=== PATIENT | male | born 1940 | race Caucasian/White ===

== ENCOUNTER 2018-07-15 17:06 | Emergency (ER) | payer OTHER ==
[~2018-07-15] VITALS: Wt 61.4 kg
[2018-07-15] MEDS ORDERED: SOD CHLORIDE 0.9% 1,000 ML IV STA ×2 (17:23→18:46)
[2018-07-15] MEDS ORDERED: morphine 4 MG/ML VIAL IV STA (17:23)
[2018-07-15] MEDS ORDERED: ONDANSETRON 4 MG INJ IV STA ×2 (17:23→18:46)
[2018-07-15] MEDS ORDERED: IOHEXOL 300MG/ML 150 ML BTL ONE (18:11)
[2018-07-15] MEDS ORDERED: SOD CHLORIDE 0.9% 100 ML ONE (18:11)
[2018-07-15] MEDS ORDERED: HYDROmorphONE 1 MG/ML SYG IV STA (18:46)
[2018-07-15] MEDS ORDERED: POTASSIUM CHLORIDE (SR) 20 MEQ TAB PO STA (18:52)
--- NOTE | 2018-07-15 18:52 | ERD ---
ER Documentation Chief Complaint Chief Complaint Pt. SANJEEV RA with c/o epigastric pain with NV, started 1hr MECHANICAL INSPECTOR HPI This is a 78-year-old male with no past medical history the presents to the emergency department complaining of abdominal pain. The patient indicates that the abdominal pain occurred roughly 6 hours prior to arrival. It was sudden in onset. He states it is epigastric in region. It does radiate to the right upper quadrant and right lower quadrant. He states it is 10 out of 10 in intensity. He had 5 episodes of nonbloody nonbilious emesis. The patient phoned 911 and when EMS arrived they indicated the patient had a blood glucose of 195. The patient appear to be in a significant amount discomfort. He states he never had any similar pain in the past. He denies any recent travel or hospitalizations. No shortness of breath at rest or exertion. He has no chest pain or pressure. He has no past surgical history ROS All systems reviewed and are negative except as per history of present illness. Medications Home Meds Active Scripts Docusate Sodium* (Colace*) 100 Mg Capsule, 100 MG PO Q24H PRN for CONSTIPATION, #30 CAP Prov:TEMITOPE WILDE MD 07/15/18 Allergies Allergies: Coded Allergies: No Known Allergy (Unverified , 07/15/18) PMhx/Soc Medical and Surgical Hx: pt denies Surgical Hx History of Surgery: No Hx Neurological Disorder: No Hx Respiratory Disorders: No Hx Cardiac Disorders: No Hx Psychiatric Problems: No Hx Miscellaneous Medical Probl: Yes (DM) Hx Alcohol Use: No Hx Substance Use: No Hx Tobacco Use: No Smoking Status: Never smoker Physical Exam Vitals Vital Signs Date Temp Pulse Resp B/P (MAP) Pulse Ox O2 O2 Flow FiO2 Time Delivery Rate 07/15/18 78 23 171/82 96 Room Air 20:00 (111) 07/15/18 81 21 180/91 99 Room Air 19:30 (120) 07/15/18 78 18 186/86 99 Room Air 19:00 (119) 07/15/18 98.8 76 22 193/91 100 17:09 (125) Physical Exam Constitutional:Well-developed. Well-nourished. Patient appear to be in a significant amount of discomfort secondary pain HEENT:Normocephalic. Atraumatic.Pupils were equal round reactive to light. Dry mucous membranes.No tonsillar exudates. Neck: No nuchal rigidity. No lymphadenopathy. No posterior cervical spine t enderness or step-offs. Respiratory: Not using accessory muscles of respiration.Lungs were clear to auscultation bilaterally. No rhonchi. No rales. No wheezing. Cardiovascular: Regular rate regular rhythm.No murmurs. No rubs were appreciated.S1, S2 normal. Distal pulses are palpable 2+ bilaterally. GI: Abdomen was soft. Epigastric tenderness and right upper quadrant tenderness with negative Barrios sign. Negative psoas sign. Negative obturator sign. Tenderness in right lower quadrant.. Non Distended. No pulsatile abdominal masses or bruits. No rebound. No guarding. Bowel sounds were present and normal. Muscle skeletal: Full range of motion of both the upper and lower extremities bilaterally.Normal muscle tone.No assymetrical calf tenderness or swelling. Skin: No petechia, no purpura. No lesions on the palms or the soles of the feet. No maculopapular rash. NEURO: Patient was alert, awake, orientated x3.No facial droop. Gait observed and normal with no ataxia.Speech had regular rate and rhythm. No focal neurological deficits. Result Diagram: 07/15/18 1730 07/15/18 1730 Results 24 hrs Laboratory Tests Test 07/15/18 17:30 White Blood Count 11.7 10^3/ul Red Blood Count 4.68 10^6/ul Hemoglobin 13.4 g/dl Hematocrit 39.2 % Mean Corpuscular Volume 83.8 fl Mean Corpuscular Hemoglobin 28.6 pg Mean Corpuscular Hemoglobin Concent 34.2 g/dl Red Cell Distribution Width 13.4 % Platelet Count 331 10^3/UL Mean Platelet Volume 11.1 fl Immature Granulocytes % 0.500 % Neutrophils % 78.4 % Lymphocytes % 16.3 % Monocytes % 3.8 % Eosinophils % 0.6 % Basophils % 0.4 % Nucleated Red Blood Cells % 0.0 /100WBC Immature Granulocytes # 0.060 10^3/ul Neutrophils # 9.2 10^3/ul Lymphocytes # 1.9 10^3/ul Monocytes # 0.4 10^3/ul Eosinophils # 0.1 10^3/ul Basophils # 0.1 10^3/ul Nucleated Red Blood Cells # 0.0 10^3/ul Prothrombin Time 12.8 Sec Prothrombin Time Ratio 1.0 INR International Normalized Ratio 0.95 Activated Partial Thromboplast Time 26.4 Sec Sodium Level 141 mmol/L Potassium Level 3.3 mmol/L Chloride Level 101 mmol/L Carbon Dioxide Level 22 mmol/L Anion Gap 18 Blood Urea Nitrogen 15 mg/dl Creatinine 0.74 mg/dl Est Glomerular Filtrat Rate mL/min mL/min Glucose Level 180 mg/dl Calcium Level 9.4 mg/dl Total Bilirubin 0.5 mg/dl Direct Bilirubin 0.00 mg/dl Indirect Bilirubin 0.5 mg/dl Aspartate Amino Transf (AST/SGOT) 21 IU/L Alanine Aminotransferase (ALT/SGPT) 18 IU/L Alkaline Phosphatase 144 IU/L Troponin I < 0.012 ng/ml Total Protein 8.3 g/dl Albumin 4.7 g/dl Globulin 3.60 g/dl Albumin/Globulin Ratio 1.30 Amylase Level 57 U/L Lipase 47 U/L Current Medications Medications Dose Sig/Awilda Start Time Status Last (Trade) Ordered Route PRN Stop Time Admin Dose Reason Admin Sodium 1,000 ml @ Q1H STAT 07/15/18 DC 07/15/18 Chloride 1,000 mls/hr IV 17:23 17:29 07/15/18 18:22 Morphine 4 mg ONCE STAT 07/15/18 DC 07/15/18 Sulfate IV 17:23 17:29 (morphine) 07/15/18 17:25 Ondansetron 4 mg ONCE STAT 07/15/18 DC 07/15/18 HCl (Zofran IV 17:23 17:29 Inj) 07/15/18 17:25 IV Flush 10 ml STK-MED 07/15/18 DC 07/15/18 (NS 10 ml) ONCE .ROUTE 18:11 18:34 07/15/18 18:12 Sodium 100 ml @ ud STK-MED 07/15/18 DC 07/15/18 Chloride ONCE .ROUTE 18:11 18:34 07/15/18 18:12 Iohexol 150 ml STK-MED 07/15/18 DC 07/15/18 (Omnipaque ONCE .ROUTE 18:11 18:34 300mg/ ml) 07/15/18 18:12 Sodium 1,000 ml @ Q1H STAT 07/15/18 DC 07/15/18 Chloride 1,000 mls/hr IV 18:46 19:28 07/15/18 19:45 1 mg ONCE STAT 07/15/18 DC 07/15/18 Hydromorphone IV 18:46 19:28 HCl 07/15/18 18:56 (Dilaudid) Ondansetron 4 mg ONCE STAT 07/15/18 DC 07/15/18 HCl (Zofran IV 18:46 19:28 Inj) 07/15/18 18:56 Potassium 20 meq ONCE STAT 07/15/18 DC 07/15/18 Chloride PO 18:52 19:29 (Klor-Con 20) 07/15/18 18:56 Magnesium 30 ml ONCE ONCE 07/15/18 DC 07/15/18 Hydroxide PO 19:30 19:34 (Milk Of Mag) 07/15/18 19:31 Meclizine 25 mg ONCE ONCE 07/15/18 DC 07/15/18 HCl PO 20:00 20:00 (Antivert) 07/15/18 20:01 Clonidine 0.1 mg ONCE ONCE 07/15/18 (Catapres) PO 20:30 07/15/18 20:31 Diazepam 5 mg ONCE ONCE 07/15/18 (Valium) PO 20:30 07/15/18 20:31 Procedures/MDM This patient presented to the emergency department with abdominal pain and was seen and evaluated by myself. My differential diagnosis included but was not limited to abdominal aortic aneurysm, appendicitis, pancreatitis, perforated peptic ulcer, perforated viscus, Boerhaaves syndrome or visceral pain such as diverticulitis, DKA, esophagitis, hepatitis or bowel obstruction. The patient was placed on a rn cardiac rehab, continuous pulse oximetry, and IV access was established by nursing staff. The patient received intravenous fluids as well as morphine and Zofran for analgesic control I did a 12-lead EKG tracing to rule out for atypical myocardial function. 12 Lead EKG tracing ordered and reviewed by myself showed: Normal sinus rhythm of 66 bpm and no arrhythmia. OR interval normal. QRS duration normal. No ST segment elevation No ST segment depression. No changes consistent with acute ischemia. The patient had leukocytosis with no severe electrolyte abnormalities other than mild hypokalemia and received oral potassium. It is necessary to obtain a CT scan of the abdomen due to the severity of the patient's pain. This was read by the radiologist and indicated the followin. 10 mm cyst lower pole left kidney. No solid renal masses. No calculus. Slight prominence of the collecting systems and ureters bilaterally secondary to overdistention of the urinary bladder. No obstructive uropathy. 2. Mild enlargement prostate gland. 3. Excessive retained stool throughout the colon, suggesting constipation. No bowel inflammation or obstruction. 4. Moderate sized hiatal hernia noted. The patient received milk of magnesium in the emergency department. Just prior to discharge at 8:20 PM the patient started to complain of a spinning-like sensation. Repeat physical exam showed nystagmus. However he did have another episode of nonbloody nonbilious emesis and therefore a CT scan of his head was obtained given that he was also complaining of a mild headache. He stated this is not the worst headache of his life. He was also given Antivert and Valium. The patient was discharged home in fair condition. They were instructed to ret urn to the emergency department at any time if there was any worsening of their condition. The patient stated they would follow up with their PCP in the next 24-48 hours to initiate a suitable medication regimen under the care of their PCP as well as to allow their PCP to monitor any drug reactions. The patient was discharged home with prescriptions after they gave informed consent to the new medication. They were also fully informed by myself on the adverse effects and adverse drug interactions in order to provide adequate safeguards to prevent possible adverse reactions to medications. Departure Diagnosis: Primary Impression: Abdominal pain Abdominal location: epigastric Qualified Codes: R10.13 - Epigastric pain Additional Impressions: Constipation Constipation type: unspecified constipation type Qualified Codes: K59.00 - Constipation, unspecified Hypokalemia Vertigo Condition: Fair TEMITOPE WILDE MD Jul 15, 2018 18:52
[2018-07-15] MEDS ORDERED: DOCU-144 PO (19:23)
[2018-07-15] MEDS ORDERED: MAGNESIUM HYDROXIDE 30ML CUP PO ONE (19:30)
[2018-07-15] MEDS ORDERED: MECLIZINE 12.5 MG TAB PO ONE (20:00)
[2018-07-15] MEDS ORDERED: DIAZEPAM 5 MG TAB PO ONE (20:30)
[2018-07-15] MEDS ORDERED: LORAZEPAM 2 MG INJ ONE (21:06)
[2018-07-15] MEDS ORDERED: LORAZEPAM 2 MG INJ IV ONE (21:30)
[2018-07-15 22:30] VITALS: BP 137/71; PULSE 85; RESP 12
== END 2018-07-15 22:45 | disposition home or self-care (01) ==
LOC: E/R 17:06
DX: K59.00 Constipation, unspecified (principal); E87.6 Hypokalemia; R42 Dizziness and giddiness; E11.9 Type 2 diabetes mellitus without complications
CPT/HCPCS: 70450; 71045; 74177; 80053; 82150; 83690; 84484; 85025; 85610; 85730; 86850; 86900; 86901; 93005; 96361; 96374; 96375; 96376; 99285; J1170; J2060; J2270; J2405; J7030; Q9967